=== PATIENT | male | born 1955 | race Asian ===

== ENCOUNTER 2020-01-12 12:12 | Inpatient (IN) | payer MEDICAID ==
[~2020-01-12] VITALS: Ht 170.2 cm; Wt 42.0 kg
[2020-01-12 12:15] VITALS: BP 133/107
--- NOTE | 2020-01-12 12:15 | NUR ---
ED Nurse Note: Patient BIBA. Per EMS, they received a phone call advising that patient was wandering around an apartment complex. Patient currently awake in hospital bed, makes eye contact, nods when asked questions, but does respond verbally. No obvious s/s of fall or trauma. VSS.
--- NOTE | 2020-01-12 12:35 | NUR ---
ED Nurse Note: Blood collected and sent to lab.
--- NOTE | 2020-01-12 12:36 | NUR ---
ED Nurse Note: Patient taken to CT.
[2020-01-12 12:46] LABS: BASOPHILS % (AUTO) 0.4 % (0.0-2.0); EOSINOPHILS % (AUTO) 0.1 % (0.0-3.0); HEMATOCRIT 42.6 % (42.0-52.0); HEMOGLOBIN 13.9 G/DL (14.2-18.0); LYMPHOCYTES % (AUTO) 15.2 % (20.0-45.0); MEAN CORPUSCULAR VOLUME 93 FL (80-99); MONOCYTES % (AUTO) 4.6 % (1.0-10.0); NEUTROPHILS % (AUTO) 79.7 % (45.0-75.0); PLATELET COUNT 246 K/UL (150-450); RED BLOOD COUNT 4.59 M/UL (4.70-6.10); RED CELL DISTRIBUTION WIDTH 14.5 % (11.6-14.8); WHITE BLOOD COUNT 7.6 K/UL (4.8-10.8)
--- NOTE | 2020-01-12 12:47 | Emergency Room Report ---
History of Present Illness General Chief Complaint: Altered Mental Status Source: Patient, EMS (Nash Pa MD) Source: Patient, EMS (Siddhartha Castle DO) Present Illness HPI Elderly unidentified male presents for altered mental status. Was wandering outside when bystanders called 911 today. Patient not wearing clothes. Patient unable to answer questions about his name. No signs of distress upon arrival. Unable to provide any additional history. No other aggravating relieving factors. No other associated symptoms (Nash Pa MD) HPI Patient is brought in by paramedics for reports of altered mental status Please refer to the initial note for the history and presentation In short the patient was found wandering outside of an apartment complex Patient is not able to provide any input we did have Sinhala Speakers speaking with them and he was able to give a last name However not able to provide any further information cannot provide history of his age or where he lives Last well-known is unknown And history of present illness is significantly limited (Siddhartha Castle DO) Allergies: Coded Allergies: UNABLE TO ASSESS (Unverified , 01/12/20) COVID-19 Screening Contact w/high risk pt: No Recent Travel to affected area: No Experienced COVID-19 symptoms?: No (Nash Pa MD) Patient History Past Medical History: none Past Surgical History: none Pertinent Family History: none Social History: Denies: smoking, alcohol use, drug use Immunizations: UTD Reviewed Nursing Documentation: PMH: Agreed; PSxH: Agreed (Nash Pa MD) Limited by: medical condition Past Medical History: see triage record Reviewed Nursing Documentation: PMH: Agreed; PSxH: Agreed (Siddhartha Castle DO) Nursing Documentation-PMH Past Medical History: No History, Except For (Nash Pa MD) Review of Systems All Other Systems: limited (Nash Pa MD) All Other Systems: limited - Other than the ones mentioned in the history of present illness all others are reviewed however they do stay limited due to the patient's mental status (Siddhartha Castle DO) Physical Exam Vital Signs Date Time Temp Pulse Resp B/P (MAP) Pulse Ox O2 Delivery O2 Flow Rate FiO2 01/12/20 12:08 97.2 63 18 133/107 (116) 98 Room Air Sp02 EP Interpretation: reviewed, normal General Appearance: no apparent distress, GCS 15, non-toxic, other - nonverbal Head: normocephalic, atraumatic Eyes: bilateral eye normal inspection, bilateral eye PERRL ENT: hearing grossly normal, normal pharynx, no angioedema, normal voice Neck: full range of motion, supple/symm/no masses Respiratory: chest non-tender, lungs clear, normal breath sounds, speaking full sentences Cardiovascular #1: regular rate, rhythm, no edema Cardiovascular #2: 2+ carotid (R), 2+ carotid (L), 2+ radial (R), 2+ radial (L) , 2+ dorsalis pedis (R), 2+ dorsalis pedis (L) Gastrointestinal: normal bowel sounds, non tender, soft, non-distended, no guarding, no rebound Rectal: deferred Genitourinary: normal inspection, no CVA tenderness Musculoskeletal: back normal, normal range of motion, gait/station normal, non- tender Neurologic: alert, other - nonverbal Psychiatric: other - nonverbal Reflexes: 3+ bicep (R), 3+ bicep (L), 3+ tricep (R), 3+ tricep (L), 3+ knee (R) , 3+ knee (L) Skin: no rash Lymphatic: no adenopathy (Nash Pa MD) 99% on RA Sp02 EP Interpretation: reviewed, normal General Appearance: no apparent distress Head: normocephalic, atraumatic Eyes: bilateral eye PERRL, bilateral eye EOMI ENT: hearing grossly normal, EOM grossly intact Neck: supple Respiratory: lungs clear, no respiratory distress, no retraction Cardiovascular #1: regular rate, rhythm Gastrointestinal: non tender, soft Genitourinary: no CVA tenderness Musculoskeletal: normal inspection Neurologic: responsive - Patient is awake and responsive maintains appropriate , airway. However not able to provide date of , and decreased orientation as noted Psychiatric: normal inspection Skin: no rash Lymphatic: no adenopathy (Siddhartha Castle DO) Procedures Critical Care Time Critical Care Time 70 minutes for multiple re-evaluations critical presentation, concern for acute decompensation and possible not including any procedural time (Siddhartha Castle DO) Medical Decision Making Diagnostic Impression: Primary Impression: Brain metastases Additional Impression: Encephalopathy ER Course Multiple differentials including but not limited to neurological, neurosurgical , infectious process entertained Patient's blood work is baseline Creatinine was elevated CT imaging shows multiple concerning findings with Multiple metastatic lesions in appearance There is consideration for possible hemorrhagic lesions as well Case is discussed with USS Dr oliva He recommended contacting [facility] , however notes that this will not require any acute neurosurgical intervention Case is also discussed with [facility] neuro chinese teacher She also reports that this case will not require ICU or further acute intervention, And recommend admission to our facility with heme-onc consultation Patient is admitted to medical surgical floor he remains hemodynamically stable However has poor prognosis and admitted in serious condition Labs Test 01/12/20 12:35 White Blood Count 7.6 K/UL (4.8-10.8) Red Blood Count 4.59 M/UL (4.70-6.10) Hemoglobin 13.9 G/DL (14.2-18.0) Hematocrit 42.6 % (42.0-52.0) Mean Corpuscular Volume 93 FL (80-99) Mean Corpuscular Hemoglobin 30.3 PG (27.0-31.0) Mean Corpuscular Hemoglobin Concent 32.7 G/DL (32.0-36.0) Red Cell Distribution Width 14.5 % (11.6-14.8) Platelet Count 246 K/UL (150-450) Mean Platelet Volume 5.0 FL (6.5-10.1) Neutrophils (%) (Auto) 79.7 % (45.0-75.0) Lymphocytes (%) (Auto) 15.2 % (20.0-45.0) Monocytes (%) (Auto) 4.6 % (1.0-10.0) Eosinophils (%) (Auto) 0.1 % (0.0-3.0) Basophils (%) (Auto) 0.4 % (0.0-2.0) Prothrombin Time 10.7 SEC (9.30-11.50) Prothromb Time International Ratio 1.0 (0.9-1.1) Activated Partial Thromboplast Time 22 SEC (23-33) Sodium Level 141 MMOL/L (136-145) Potassium Level 4.5 MMOL/L (3.5-5.1) Chloride Level 102 MMOL/L (98-107) Carbon Dioxide Level 21 MMOL/L (21-32) Anion Gap 18 mmol/L (5-15) Blood Urea Nitrogen 36 mg/dL (7-18) Creatinine 1.8 MG/DL (0.55-1.30) Estimat Glomerular Filtration Rate 38.7 mL/min (>60) Glucose Level 179 MG/DL (74-106) Calcium Level 10.0 MG/DL (8.5-10.1) Total Bilirubin 0.9 MG/DL (0.2-1.0) Aspartate Amino Transf (AST/SGOT) 37 U/L (15-37) Alanine Aminotransferase (ALT/SGPT) 22 U/L (12-78) Alkaline Phosphatase 59 U/L (46-116) Troponin I 0.000 ng/mL (0.000-0.056) Total Protein 7.9 G/DL (6.4-8.2) Albumin 3.9 G/DL (3.4-5.0) Globulin 4.0 g/dL Albumin/Globulin Ratio 1.0 (1.0-2.7) Salicylates Level 5.9 ug/mL (2.8-20) Acetaminophen Level < 2 MCG/ML (10-30) Serum Alcohol < 3 mg/dL (Siddhartha Castle DO) EKG Diagnostic Results Rate: normal Rhythm: NSR ST Segments: no acute changes (Siddhartha Castle DO) Rhythm Strip Diag. Results EP Interpretation: yes Rate: 77 Rhythm: NSR, no PVC's, no ectopy (Siddhartha Castle DO) Chest X-Ray Diagnostic Results Chest X-Ray Diagnostic Results : Chest X-Ray Ordered: Yes # of Views/Limited/Complete: 1 View Indication: Chest Pain EP Interpretation: Yes Interpretation: no consolidation, no effusion, other - Leon right mid lung mass lesion Impression: Other - Question right midlung lesion Electronically Signed by: Siddhartha Castle DO (Siddhartha Castle DO) CT/MRI/US Diagnostic Results CT/MRI/US Diagnostic Results : Impression CT head Impression: Innumerable small hyperattenuating lesions in predominantly cortical/subcortical distribution, all supratentorial. Uncertain if these represent areas of calcification or hemorrhage. If hemorrhage, differential considerations are hemorrhagic metastatic disease or unusual encephalopathy; amyloid angiopathy or hypertensive angiopathy theoretically in the differential but appearance not typical for such. If calcification, primary differential considerations include calcified metastases, infection or metabolic disorder. Overall favor metastatic disease given fairly typical location of most lesions at the nance-white junction. Peripheral lesions may represent meningeal involvement. Recommend contrast MRI for better characterization No significant mass effect Old right occipital infarct Extensive deep white matter low-attenuation, most likely chronic ischemic change Findings discussed by phone with Tori in the emergency room at the time of interpretation (Siddhartha Castle DO) Last Vital Signs Date Time Temp Pulse Resp B/P (MAP) Pulse Ox O2 Delivery O2 Flow Rate FiO2 01/12/20 12:08 97.2 63 18 133/107 (116) 98 Room Air (Nash Pa MD) Status: improved (Siddhartha Castle DO) Disposition: ADMITTED INPATIENT Condition: Serious Referrals: NOT CHOSEN IPA/,REFERRING (PCP) Nash Pa MD Jan 12, 2020 12:47 Siddhartha Castle DO Jan 12, 2020 21:11
--- NOTE | 2020-01-12 12:48 | NUR ---
ED Nurse Note: Patient returned from CT.
[2020-01-12 13:01] LABS: ANION GAP 18 mmol/L (5-15); BLOOD UREA NITROGEN 36 mg/dL (7-18); CARBON DIOXIDE 21 MMOL/L (21-32); CHLORIDE 102 MMOL/L (98-107); CREATININE 1.8 MG/DL (0.55-1.30); POTASSIUM 4.5 MMOL/L (3.5-5.1); SODIUM 141 MMOL/L (136-145)
[2020-01-12 13:04] LABS: ALANINE AMINOTRANSFERASE 22 U/L (12-78); ALBUMIN 3.9 G/DL (3.4-5.0); ALKALINE PHOSPHATASE 59 U/L (46-116); ASPARTATE AMINO TRANSFERASE 37 U/L (15-37); BILIRUBIN,TOTAL 0.9 MG/DL (0.2-1.0)
--- NOTE | 2020-01-12 13:25 | NUR ---
ED Nurse Note: Patient unable to provide urine. Per Dr. Pa ok to hold off on urine collectioin at this time.
[2020-01-12] MEDS ORDERED: levETIRAcetam 1,000mg/NS100ml 100 ML IVPB ONE (14:00)
--- NOTE | 2020-01-12 14:00 | NUR ---
ED Nurse Note: Type and cross collected and sent to lab. Per Dr. Pa, patient transferred to monitored bed. Handoff report given to Scarlett VALENTE.
--- NOTE | 2020-01-12 14:00 | Diagnostic Imaging Report ---
Indications: Altered mental status Technique: Spiral acquisitions obtained through the brain. Angled axial and coronal 5 x 5 mm slices were reconstructed. Total dose length product 1045 mGycm. CTDI vol(s) 53 mGy. Dose reduction achieved using automated exposure control Comparison: None. Findings: There are innumerable areas of cortical and subcortical hyperattenuation. Some of these are rounded , largest measuring 7 mm in diameter, and some are gyriform. These are also seen within the bilateral caudate heads. Similar lesions are seen in the medial basal ganglia bilaterally, although these could represent physiologic calcifications. There is a large area of encephalomalacia involving the right occipital lobe. There is extensive periventricular deep white matter low-attenuation, consistent with chronic microvascular ischemic change. There is age-related enlargement of the ventricles and extra-axial CSF spaces. There is an old infarct in the anterior left basal ganglia. Intact calvarium. The mastoids are clear. There is a left maxillary sinus mucous retention cyst. Impression: Innumerable small hyperattenuating lesions in predominantly cortical/subcortical distribution, all supratentorial. Uncertain if these represent areas of calcification or hemorrhage. If hemorrhage, differential considerations are hemorrhagic metastatic disease or unusual encephalopathy; amyloid angiopathy or hypertensive angiopathy theoretically in the differential but appearance not typical for such. If calcification, primary differential considerations include calcified metastases, infection or metabolic disorder. Overall favor metastatic disease given fairly typical location of most lesions at the nance-white junction. Peripheral lesions may represent meningeal involvement. Recommend contrast MRI for better characterization No significant mass effect Old right occipital infarct Extensive deep white matter low-attenuation, most likely chronic ischemic change Findings discussed by phone with Tori in the emergency room at the time of interpretation The CT scanner at [facility] is accredited by the [employer] and the scans are performed using protocols designed to limit radiation exposure to as low as reasonably achievable to attain images of sufficient resolution adequate for diagnostic evaluation.
--- NOTE | 2020-01-12 14:35 | NUR ---
ED Nurse Note: pt into monitored room tolerates transfer well. pt speaking french with staff. ounable to verbalize his name or where he is living. remains ams. vss, meds infusing as ordered
[2020-01-12 14:41] VITALS: BP 118/80
--- NOTE | 2020-01-12 16:26 | NUR ---
ED Nurse Note: pt without new c/o no seizure activity. pt remains calm and resting with eyes closed in room. pt now to be med surg admission.
--- NOTE | 2020-01-12 16:35 | Diagnostic Imaging Report ---
Indication: Chest pain Technique: One view of the chest Comparison: none Findings: The lungs appear somewhat hyperinflated. There is questionably an oval 2.3 cm nodule projected in the right midlung, superimposed over the anterior right fourth costochondral junction. There is apparent sclerosis of the anterior left third rib, versus a superimposed lung nodule. The lungs and pleural spaces are otherwise clear. The heart size is normal. The aorta is tortuous Impression: Questionable right midlung 2.3 cm nodule Sclerotic left third rib versus superimposed nodule. Hyperinflation, likely COPD. No acute process otherwise
--- NOTE | 2020-01-12 16:54 | NUR ---
ED Nurse Note: pt with ivf infusing well. condom cath placed with urine bag to obtain urine sample. no seizure activity noted.
[2020-01-12 18:06] VITALS: BP 115/71
--- NOTE | 2020-01-12 18:14 | NUR ---
ED Nurse Note: attempted to give medicaid specialist report. to call back.
--- NOTE | 2020-01-12 18:21 | NUR ---
ED Nurse Note: admission swabs done as unsure of pt prior status
--- NOTE | 2020-01-12 18:31 | NUR ---
ED Nurse Note:\ per ed charge coordinator. pt moved to 3 east and rn to give bedside report. to [phone] tech and rn
--- NOTE | 2020-01-12 19:00 | NUR ---
NURSE NOTES: Rounds made pt wake a/ox1,no s/s of respiratory distress , bed in low locked position, call light with in reach will continue to monitor
--- NOTE | 2020-01-12 19:30 | NUR ---
NURSE NOTES: admission orders received , verified and carried
[2020-01-12] MEDS ORDERED: Gadavist 7.5mMol/7.5ml vial IV PRN (20:00)
[2020-01-12] MEDS ORDERED: XARELTO20 MG ORAL (21:49)
[2020-01-12] MEDS ORDERED: MORPHINE 22 MG/1 ML IV (21:51)
[2020-01-12] MEDS: Morphine Sulfate 2mg/ml Inj(IV/IM USE ONLY) IVP PRN (23:04)
[2020-01-13] VITALS: BP 129/83
[2020-01-13] MEDS: LORazepam 1mg tab ORAL PRN (00:02)
[2020-01-13 04:00] VITALS: BP 118/77
[2020-01-13] MEDS: Morphine Sulfate 2mg/ml Inj(IV/IM USE ONLY) IVP PRN ×2 (04:00→08:56)
[2020-01-13 05:43] LABS: BASOPHILS % (AUTO) 0.3 % (0.0-2.0); EOSINOPHILS % (AUTO) 0.2 % (0.0-3.0); HEMATOCRIT 35.2 % (42.0-52.0); HEMOGLOBIN 11.9 G/DL (14.2-18.0); LYMPHOCYTES % (AUTO) 21.6 % (20.0-45.0); MEAN CORPUSCULAR VOLUME 91 FL (80-99); MONOCYTES % (AUTO) 6.8 % (1.0-10.0); NEUTROPHILS % (AUTO) 71.1 % (45.0-75.0); PLATELET COUNT 216 K/UL (150-450); RED BLOOD COUNT 3.85 M/UL (4.70-6.10); RED CELL DISTRIBUTION WIDTH 14.3 % (11.6-14.8); WHITE BLOOD COUNT 6.5 K/UL (4.8-10.8)
[2020-01-13 06:02] LABS: ALANINE AMINOTRANSFERASE 27 U/L (12-78); ALBUMIN 3.1 G/DL (3.4-5.0); ALBUMIN/GLOBULIN RATIO 0.9 (1.0-2.7); ALKALINE PHOSPHATASE 50 U/L (46-116); ANION GAP 12 mmol/L (5-15); ASPARTATE AMINO TRANSFERASE 32 U/L (15-37); BILIRUBIN,TOTAL 0.7 MG/DL (0.2-1.0); BLOOD UREA NITROGEN 26 mg/dL (7-18); CARBON DIOXIDE 24 MMOL/L (21-32); CHLORIDE 111 MMOL/L (98-107); CREATININE 1.1 MG/DL (0.55-1.30); POTASSIUM 3.9 MMOL/L (3.5-5.1); SODIUM 147 MMOL/L (136-145)
--- NOTE | 2020-01-13 06:20 | Consultation ---
History of Present Illness General Chief Complaint: Altered Mental Status Present Illness Allergies: Coded Allergies: UNABLE TO ASSESS (Unverified , 01/12/20) Medication History Scheduled Morphine Sulfate* (Morphine Sulfate*), 2 MG IV Q3HR, (Reported) Miscellaneous Medications Rivaroxaban (Xarelto), 20 MG ORAL, (Reported) Patient History Healthcare decision maker Resuscitation status Advanced Directive on File Physical Exam Last 24 Hour Vital Signs Date Time Temp Pulse Resp B/P (MAP) Pulse Ox O2 Delivery O2 Flow Rate FiO2 01/13/20 00:00 97.8 85 18 129/83 (98) 95 01/12/20 21:55 Room Air 01/12/20 18:06 89 16 115/71 100 Room Air 01/12/20 14:41 70 16 118/80 98 Room Air 01/12/20 12:15 97.2 63 18 133/107 98 Room Air 01/12/20 12:15 63 18 Room Air 01/12/20 12:08 97.2 63 18 133/107 (116) 98 Room Air Intake and Output 01/12/20 01/13/20 19:00 07:00 Intake Total 3200 ml Balance 3200 ml Intake IV Total 3200 ml Laboratory Tests Test 01/12/20 12:35 01/13/20 05:05 White Blood Count 7.6 K/UL (4.8-10.8) 6.5 K/UL (4.8-10.8) Red Blood Count 4.59 M/UL (4.70-6.10) L 3.85 M/UL (4.70-6.10) L Hemoglobin 13.9 G/DL (14.2-18.0) L 11.9 G/DL (14.2-18.0) L Hematocrit 42.6 % (42.0-52.0) 35.2 % (42.0-52.0) L Mean Corpuscular Volume 93 FL (80-99) 91 FL (80-99) Mean Corpuscular Hemoglobin 30.3 PG (27.0-31.0) 30.8 PG (27.0-31.0) Mean Corpuscular Hemoglobin Concent 32.7 G/DL (32.0-36.0) 33.7 G/DL (32.0-36.0) Red Cell Distribution Width 14.5 % (11.6-14.8) 14.3 % (11.6-14.8) Platelet Count 246 K/UL (150-450) 216 K/UL (150-450) Mean Platelet Volume 5.0 FL (6.5-10.1) L 4.9 FL (6.5-10.1) L Neutrophils (%) (Auto) 79.7 % (45.0-75.0) H 71.1 % (45.0-75.0) Lymphocytes (%) (Auto) 15.2 % (20.0-45.0) L 21.6 % (20.0-45.0) Monocytes (%) (Auto) 4.6 % (1.0-10.0) 6.8 % (1.0-10.0) Eosinophils (%) (Auto) 0.1 % (0.0-3.0) 0.2 % (0.0-3.0) Basophils (%) (Auto) 0.4 % (0.0-2.0) 0.3 % (0.0-2.0) Prothrombin Time 10.7 SEC (9.30-11.50) Prothromb Time International Ratio 1.0 (0.9-1.1) Activated Partial Thromboplast Time 22 SEC (23-33) L Sodium Level 141 MMOL/L (136-145) Pending Potassium Level 4.5 MMOL/L (3.5-5.1) Pending Chloride Level 102 MMOL/L (98-107) Pending Carbon Dioxide Level 21 MMOL/L (21-32) Pending Anion Gap 18 mmol/L (5-15) H Blood Urea Nitrogen 36 mg/dL (7-18) H Pending Creatinine 1.8 MG/DL (0.55-1.30) H Pending Estimat Glomerular Filtration Rate 38.7 mL/min (>60) Pending Glucose Level 179 MG/DL (74-106) H Pending Calcium Level 10.0 MG/DL (8.5-10.1) Pending Total Bilirubin 0.9 MG/DL (0.2-1.0) Pending Aspartate Amino Transf (AST/SGOT) 37 U/L (15-37) Pending Alanine Aminotransferase (ALT/SGPT) 22 U/L (12-78) Pending Alkaline Phosphatase 59 U/L (46-116) Pending Troponin I 0.000 ng/mL (0.000-0.056) Total Protein 7.9 G/DL (6.4-8.2) Pending Albumin 3.9 G/DL (3.4-5.0) Pending Globulin 4.0 g/dL Pending Albumin/Globulin Ratio 1.0 (1.0-2.7) Salicylates Level 5.9 ug/mL (2.8-20) Acetaminophen Level < 2 MCG/ML (10-30) L Serum Alcohol < 3 mg/dL Height (Feet): 5 Height (Inches): 7.00 Weight (Pounds): 100 Medications Current Medications Medications (Trade) Dose Ordered Sig/Aletha Route PRN Reason Start Time Stop Time Status Last Admin Dose Admin Gadobutrol (Gadavist) 7.5 mmol NOW PRN IV Radiology Procedure 01/12/20 20:00 01/16/20 20:00 Lorazepam (Ativan) 1 mg Q4H PRN ORAL For Anxiety 01/12/20 20:00 01/19/20 19:59 01/13/20 00:02 Morphine Sulfate (Morphine Sulfate) 2 mg Q3H PRN IVP For Pain 01/12/20 22:00 01/19/20 21:59 01/13/20 04:00 Rivaroxaban (Xarelto) 20 mg DAILY ORAL 01/13/20 09:00 04/12/20 08:59 UNV Sodium Chloride 1,000 ml @ 100 mls/hr Q10H IV 01/12/20 20:15 02/11/20 20:14 01/12/20 20:15 Assessment/Plan Assessment/Plan: Oncology Consultation RECamacho MD: Sam Dugan RFC: Brains mets DOS 01/13/2020 HPI 64y old male, elderly unidentified male presents for altered mental status. Was wandering outside when bystanders called 911 today. Patient not wearing clothes. Patient unable to answer questions about his name. No signs of distress upon arrival. Unable to provide any additional history. No other aggravating relieving factors. No other associated symptoms I reviewed brain imaging, shows, multiple brain mets, no other hx noted, no prior hx of imaging. Patient is brought in by paramedics for reports of altered mental status. Please refer to the initial note for the history and presentation. In short the patient was found wandering outside of an apartment complex Patient is not able to provide any input we did have Belarusian Speakers speaking with them and he was able to give a last name However not able to provide any further information cannot provide history of his age or where he lives And history of present illness is significantly limited I used a Belarusian speaking Rn to dw patient care Allergies: UNABLE TO ASSESS (Unverified , 01/12/20) COVID-19 Screening Contact w/high risk pt: No Recent Travel to affected area: No Experienced COVID-19 symptoms?: No Patient History Past Medical History: none Past Surgical History: none Pertinent Family History: none Social History: Denies: smoking, alcohol use, drug use Immunizations: UTD Reviewed Nursing Documentation: PMH: Agreed; PSxH: Agreed Limited by: medical condition Past Medical History: see triage record Reviewed Nursing Documentation: PMH: Agreed; PSxH: Agreed Nursing Documentation-PMH Past Medical History: No History, Except For Review of Systems All Other Systems: limited- Other than the ones mentioned in the history of present illness all others are reviewed however they do stay limited due to the patient's mental status Vital Signs Vitals: noted General no apparent distress, GCS 15, nonverbal Heent: nc, at Resp: chest non-tender, lungs clear Cardiovascular: rrr, no mgr Gastrointestinal: normal bowel sounds, non tender Rectal: deferred Genitourinary: normal inspection, no CVA tenderness Musc: back normal, normal range of motion Neurologic: alert, other - nonverbal Psychiatric: other - nonverbal Labs: noted Imaging: noted Assessment and recs # Lung cancer with brain mets noted on imaging, multiple differentials including but not limited to neurological, neurosurgical, infectious process entertained, prior hospice --> imaging noted on imaging --> have ordered for tumor markers --> case dw son, has been on hospice before,consider back on hospice ==> per Dr. oliva, likely won't need neurosurgery [facility] transfer --> BACK on hospice recommendation # Anemia due to chronic disease --> no bleeding reported --> smear is noted --> no hemolysis # Encephalopathy --> likely related to brain mets --> lytes and ammonia # Dvt ppx scds DW Rn and appreciate consultation Kirby Mojica MD Jan 13, 2020 06:20
--- NOTE | 2020-01-13 07:30 | NUR ---
NURSE NOTES: Patient is in bed asleep. Stable. Breathing is even and unlabored. No visible signs of distress noted. Patient is in bed in locked and lowest position with call light within reach. All safety measures provided. Will continue to monitor.
[2020-01-13 08:00] VITALS: BP 131/90
--- NOTE | 2020-01-13 08:16 | NUR ---
HAND-OFF: Report given to Rosie VALENTE.
--- NOTE | 2020-01-13 08:17 | NUR ---
HAND-OFF: Report given to Sun VALENTE.
[2020-01-13] MEDS: Xarelto 10mg tab ORAL SCH ×2 (08:55→09:00)
--- NOTE | 2020-01-13 09:01 | NUR ---
NURSE NOTES: RN attempted to give patient morning PO medication. Patient spit out medication and refused to take pills.
--- NOTE | 2020-01-13 09:58 | NUR ---
CASE MANAGEMENT: INITIAL REVIEW 64YR OLD MALE BIBA FROM STREET CC: ALTERED MENTAL STATUS; WONDERING STREET NAKED SI:BRAIN METASTATIC DISEASE . ENCEPHALOPATHY 97.2 63 18 133/107 98% ON RA BUN/CREAT 36/1.8 BG 179 PTT 22 ACETAMINOPHEN <2 IS:IVF NS BOLUS X1 IV KEPPRA X1 CHEST X-[id number]-Tetopcnxdlks right midlung 2.3 cm nodule; Sclerotic left third rib versus superimposed nodule. Hyperinflation, likely COPD. CT HEAD- Innumerable small hyperattenuating lesions in predominantly cortical/subcortical distribution, all supratentorial. Uncertain if these represent areas of calcification or hemorrhage. \: [facility] DCP: HOME WHEN STABLE VS SNF PLAN: COVID-19 R/O CASE MANAGEMENT: REVIEW 01/13/20 SI:BRAIN METASTATIC DISEASE . ENCEPHALOPATHY 97.6 78 18 131/90 98% ON RA NA+ 147 BUN 26 CA+ 8.0 ALBUMIN 3.1 IS:IV NS @100ML/HR ATIVAN PO Q4HR/PRN \: [facility]E MED [facility]G UNIT DCP: HOME WHEN STABLE; INSURANCE VERIFICATION IN PROCESS PLAN: COVID-19 R/O
--- NOTE | 2020-01-13 10:43 | NUR ---
SALES FLOOR TEAM LEADER NOTE SW met w/ pt and attempted to assess. Pt is awake but was unable to answer questions and have meaningful conversation. Pt presents as A&O 0x and underweight. GALLO contacted pt's son, Diogenes Son [phone]. Per Diogenes, pt was dx w/ Brain Disease and has been significantly deteriorated a month ago. Pt resides w/ Diogenes at [address] [address]. PT does not receive any income.Pt has only one son. Per Diogenes, pt needs assistance w/ ADLs. Pt does not have a caregiver and may not qualify for [facility] service d/t restricted insurance. The son provided the cane for pt but pt declined to use the cane. This pt may not be safe to return home. Pt receives hospice care: [facility] [phone]. GALLO left a message for call back. Addendum: 01/13/20 at 1127 by CATHLEEN HOLDER GALLO spoke w/ Sil, admission coordinator at [facility] [phone]. PT has been receiving hospice service ins 01/07/2020. Per Sil, the son initially declined pt to be placed at half-way and Sil provided the list of caregiving services. GALLO informed Sil that pt's son requested half-way placement. [facility] can continue to provide service once pt's DC placement is settled.
--- NOTE | 2020-01-13 11:37 | History & Physical ---
History and Physical History & Physicial 64y old male, elderly unidentified male presents for altered mental status. Was wandering outside when bystanders called 911 today. Patient not wearing clothes. 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 and has been in significant pain and on hospice at home and would like him to return I reviewed brain imaging, shows, multiple brain mets, which was confirmed by son currently with significant pain PMH small cell ca with mets DVT MEDS and ALLERGIES noted PHYSICAL frail male NAD CTA [id number] no CCE Labs Test 01/12/20 12:35 01/13/20 05:05 White Blood Count 7.6 K/UL (4.8-10.8) 6.5 K/UL (4.8-10.8) Red Blood Count 4.59 M/UL (4.70-6.10) 3.85 M/UL (4.70-6.10) Hemoglobin 13.9 G/DL (14.2-18.0) 11.9 G/DL (14.2-18.0) Hematocrit 42.6 % (42.0-52.0) 35.2 % (42.0-52.0) Mean Corpuscular Volume 93 FL (80-99) 91 FL (80-99) Mean Corpuscular Hemoglobin 30.3 PG (27.0-31.0) 30.8 PG (27.0-31.0) Mean Corpuscular Hemoglobin Concent 32.7 G/DL (32.0-36.0) 33.7 G/DL (32.0-36.0) Red Cell Distribution Width 14.5 % (11.6-14.8) 14.3 % (11.6-14.8) Platelet Count 246 K/UL (150-450) 216 K/UL (150-450) Mean Platelet Volume 5.0 FL (6.5-10.1) 4.9 FL (6.5-10.1) Neutrophils (%) (Auto) 79.7 % (45.0-75.0) 71.1 % (45.0-75.0) Lymphocytes (%) (Auto) 15.2 % (20.0-45.0) 21.6 % (20.0-45.0) Monocytes (%) (Auto) 4.6 % (1.0-10.0) 6.8 % (1.0-10.0) Eosinophils (%) (Auto) 0.1 % (0.0-3.0) 0.2 % (0.0-3.0) Basophils (%) (Auto) 0.4 % (0.0-2.0) 0.3 % (0.0-2.0) Prothrombin Time 10.7 SEC (9.30-11.50) Prothromb Time International Ratio 1.0 (0.9-1.1) Activated Partial Thromboplast Time 22 SEC (23-33) Sodium Level 141 MMOL/L (136-145) 147 MMOL/L (136-145) Potassium Level 4.5 MMOL/L (3.5-5.1) 3.9 MMOL/L (3.5-5.1) Chloride Level 102 MMOL/L (98-107) 111 MMOL/L (98-107) Carbon Dioxide Level 21 MMOL/L (21-32) 24 MMOL/L (21-32) Anion Gap 18 mmol/L (5-15) 12 mmol/L (5-15) Blood Urea Nitrogen 36 mg/dL (7-18) 26 mg/dL (7-18) Creatinine 1.8 MG/DL (0.55-1.30) 1.1 MG/DL (0.55-1.30) Estimat Glomerular Filtration Rate 38.7 mL/min (>60) > 60 mL/min (>60) Glucose Level 179 MG/DL (74-106) 93 MG/DL (74-106) Calcium Level 10.0 MG/DL (8.5-10.1) 8.0 MG/DL (8.5-10.1) Total Bilirubin 0.9 MG/DL (0.2-1.0) 0.7 MG/DL (0.2-1.0) Aspartate Amino Transf (AST/SGOT) 37 U/L (15-37) 32 U/L (15-37) Alanine Aminotransferase (ALT/SGPT) 22 U/L (12-78) 27 U/L (12-78) Alkaline Phosphatase 59 U/L (46-116) 50 U/L (46-116) Troponin I 0.000 ng/mL (0.000-0.056) Total Protein 7.9 G/DL (6.4-8.2) 6.4 G/DL (6.4-8.2) Albumin 3.9 G/DL (3.4-5.0) 3.1 G/DL (3.4-5.0) Globulin 4.0 g/dL 3.3 g/dL Albumin/Globulin Ratio 1.0 (1.0-2.7) 0.9 (1.0-2.7) Salicylates Level 5.9 ug/mL (2.8-20) Acetaminophen Level < 2 MCG/ML (10-30) Serum Alcohol < 3 mg/dL Reticulocyte Count 0.7 % (0.5-2.0) Prostate Specific Antigen 1.17 ng/mL (0.13-4.0) IMPRESSION Small cell Ca widely metastatic chronic encephalopathy anxiety severe pain cachexia PLAN oncology noted confirms that patient should be sent home with hospice son would like to continue and confirms DNR impression, plan, and exam edited and reviewed in detail care discussed with Cristhian Stout MD Jan 13, 2020 11:37
[2020-01-13 12:00] VITALS: BP 143/82
[2020-01-13] MEDS: Morphine Sulfate 4mg/ml Inj (IV USE ONLY) IVP PRN ×3 (12:46→21:37)
--- NOTE | 2020-01-13 12:56 | NUR ---
[employer] Bedside Swallow Evaluation (full report in Care Activity Section) Referred for Bedside Swallow Evaluation by Dr. Dugan. Dysphagia risk factors for this frail 64-year-old Indonesian-Speaking male: ACUTE ISSUES: Small cell Brain Cancer with metastasis RELEVANT MEDICATIONS: Per RN, Pt given Morphine prior to evaluation. RESPIRATORY STATUS: Pt is on room air, no SOB or increased WOB. RN REPORTS: When attempting to give Pt medications, Pt spit medications back at RN. Pt's breakfast meal tray of chewable solids and thin liquids is still sitting at bedside when [employer] arrived in room. Pt appearing frail, movements are slow, able to respond to simple, yes/no questions. Pt moans occasionally when attempting to reposition. Pt is alert for PO trials and has some dentition, is on room air. INITIAL IMPRESSIONS: High risk for OP Dysphagia, POOR PO intake, AND REDUCED SWALLOW EFFICACY due to reduced alertness & pain levels (given Morphine), h/o poor PO intake (per son), overall weakness, result in concern for Pt's ability to maintain adequate nutrition/hydration via PO intake. Pt IS AT A HIGH SILENT ASPIRATION RISK DUE TO H/o BRAIN CA & H/o CVA. PO TRIALS: -Given Thin Liquids via straw/cup/spoon w/ no overt s/s of aspiration, however, Pt observed w/ multiple swallows. -Given Puree Solids w/ no overt s/s of aspiration, laryngeal elevation is fair and delayed per palpations. No oral residuals remaining in oral cavity. Due to Pt previously being on hospice, has h/o poor PO intake (per Son Pt w/ min intake of Ensure or any solid foods previously and would appreciate recommendations of foods Pt is agreeable to eat), and concern for Pt's ability to sustain adequate nutrition/hydration via PO intake, MD to consider supplemental alternative nutrition/hydration. Due to Pt being on Hospice, [employer] plans to see Pt while still in house to optimize Pt's safety and ability to consume least restrictive PO diet for adequate nutrition and hydration while Pt is still in house. RECOMMENDATIONS: 1. Continue Soft Chewable Solids with Thin Liquids, Please assist Pt w/ tray set up. 2. Consider 24-hour calorie count 3. [employer] plans to continue to follow Pt while in house for dysphagia management, Pt and caregiver education and training, to optimize quality of life and safety w/ PO intake. 4. Please assist Pt w/ strict oral care w/ suction. Educted RN on results and recommendations, and [employer] spoke w/ Pt's son regarding recommendations.
--- NOTE | 2020-01-13 13:11 | NUR ---
RD ASSESSMENT & RECOMMENDATIONS SEE CARE ACTIVITY FOR COMPLETE ASSESSMENT DAILY ESTIMATED NEEDS: Needs based on Severe underweight 42.2 35-40 kcals/kg 3311-4125 total kcals 1-2 g protein/kg 42-84 g total protein 25-35ml/kcal mL/kg 5949-7696 total fluid mLs NUTRITION DIAGNOSIS: Increase Kcal needs r/t underweight status as evidenced by pt w/mets brain dz, BMI underweight per guidelines, pt is 63% of ideal body weight w/ severe generalized wasting. CURRENT DIET:soft PO DIET RECOMMENDATIONS: Liberalized regular diet-> texture per ANIMAL NUTRITION TEACHER ADDITIONAL RECOMMENDATIONS: 1) Add Ensure TID w/ meals + snacks as tolerated in b/w meals 2) Weekly weights 3) IVF for hydration
--- NOTE | 2020-01-13 13:29 | NUR ---
P.T Note: Pt unable to tolerated P.T evaluation. Pt is lethargic and in severe pain despite receiving pain meds prior to P.T attempt. Will reattempt as patient is able.
[2020-01-13 16:00] VITALS: BP 165/98
--- NOTE | 2020-01-13 19:36 | NUR ---
HAND-OFF: Report given to Byrono RN. Patient is stable.
--- NOTE | 2020-01-13 19:40 | NUR ---
NURSE NOTES: Receive a report from SIDRA Velez. Round is done. Pt is awake but confused. Noted general weakness and stiffness. Pt is not able to follow directions much. Pulled out condom catheter by himself. No acute distress noted. No respiratory distress noted. On bed alarm. Bed is locked and lowest. On side rail pads both sides. Kept elevated head. Will continue to monitor.
[2020-01-13 20:00] VITALS: BP 145/99
--- NOTE | 2020-01-13 22:00 | NUR ---
NURSE NOTES: Pt could not express his own needs well but after getting pain medication, pt seems less agitated. Could not vocalize his pain location. Noted bladder incontinent. Done change sheets and gown. Kept dry and clean. No skin issues noted except old scabs around the body and legs. Will continue to monitor.
[2020-01-14] VITALS: BP 155/75
--- NOTE | 2020-01-14 | NUR ---
NURSE NOTES: Noted dry mouth and tried to give thickened water/applesauce but refuses to eat. Kept head elevated. IV hydration with NS 100ml/hr. Will continue to monitor.
[2020-01-14] MEDS: Morphine Sulfate 4mg/ml Inj (IV USE ONLY) IVP PRN ×3 (01:42→10:39)
[2020-01-14 04:00] VITALS: BP 151/94
--- NOTE | 2020-01-14 06:00 | NUR ---
NURSE NOTES: No acute distress noted. Pt took out gown by himself and did not want to put it on. After pain medication, pt looks less agitated but still could not express own needs. Will continue to monitor.
[2020-01-14 07:08] LABS: ANION GAP 11 mmol/L (5-15); BLOOD UREA NITROGEN 18 mg/dL (7-18); CALCIUM 7.8 MG/DL (8.5-10.1); CARBON DIOXIDE 24 MMOL/L (21-32); CHLORIDE 114 MMOL/L (98-107); CREATININE 0.8 MG/DL (0.55-1.30); POTASSIUM 3.6 MMOL/L (3.5-5.1); SODIUM 149 MMOL/L (136-145)
[2020-01-14 07:14] LABS: BASOPHILS % (AUTO) 0.2 % (0.0-2.0); EOSINOPHILS % (AUTO) 0.2 % (0.0-3.0); HEMATOCRIT 37.2 % (42.0-52.0); HEMOGLOBIN 12.3 G/DL (14.2-18.0); LYMPHOCYTES % (AUTO) 22.3 % (20.0-45.0); MEAN CORPUSCULAR VOLUME 92 FL (80-99); MONOCYTES % (AUTO) 5.2 % (1.0-10.0); NEUTROPHILS % (AUTO) 72.1 % (45.0-75.0); PLATELET COUNT 236 K/UL (150-450); RED BLOOD COUNT 4.06 M/UL (4.70-6.10); RED CELL DISTRIBUTION WIDTH 14.6 % (11.6-14.8)
--- NOTE | 2020-01-14 07:30 | NUR ---
HAND-OFF: Report given to SIDRA Velez. Round is done.
--- NOTE | 2020-01-14 07:41 | NUR ---
NURSE NOTES: Patient is in bed asleep. Stable. Facial grimacing noted. Breathing is even and unlabored. No distress noted. Patient is in bed in locked and lowest position with call light within reach and bed alarm on. All safety measures provided. Will continue to monitor.
[2020-01-14 08:00] VITALS: BP 149/100
[2020-01-14] MEDS ORDERED: HYDROmorphone 1mg/ml Carpuject IVP PRN (08:00)
--- NOTE | 2020-01-14 08:36 | General Progress Note ---
Assessment/Plan Assessment/Plan: IMPRESSION Small cell Ca widely metastatic chronic encephalopathy anxiety severe pain cachexia PLAN oncology noted confirms that patient should be sent home with hospice son would like to continue and confirms DNR await case management to assist impression, plan, and exam edited and reviewed in detail care discussed with RN Subjective Allergies: Coded Allergies: UNABLE TO ASSESS (Unverified , 01/12/20) Subjective awaiting dc Objective Last 24 Hour Vital Signs Date Time Temp Pulse Resp B/P (MAP) Pulse Ox O2 Delivery O2 Flow Rate FiO2 01/14/20 08:00 98.1 79 18 149/100 (116) 98 01/14/20 04:00 97.3 79 18 151/94 (113) 99 01/14/20 00:00 97.1 80 18 155/75 (101) 99 01/13/20 22:07 97.8 01/13/20 21:00 Room Air 01/13/20 20:00 96.3 81 18 145/99 (114) 96 01/13/20 16:00 97.8 92 18 165/98 (120) 97 01/13/20 12:00 97.3 75 18 143/82 (102) 98 01/13/20 09:00 Room Air Intake and Output 01/13/20 01/14/20 19:00 07:00 Intake Total 1200 ml Output Total 200 ml Balance 1000 ml Intake IV Total 1200 ml Output Urine Total 200 ml # Voids 1 Laboratory Tests 01/14/20 04:45: White Blood Count 7.0, Red Blood Count 4.06L, Hemoglobin 12.3L, Hematocrit 37.2L , Mean Corpuscular Volume 92, Mean Corpuscular Hemoglobin 30.3, Mean Corpuscular Hemoglobin Concent 33.1, Red Cell Distribution Width 14.6, Platelet Count 236, Mean Platelet Volume 5.4L, Neutrophils (%) (Auto) 72.1, Lymphocytes ( %) (Auto) 22.3, Monocytes (%) (Auto) 5.2, Eosinophils (%) (Auto) 0.2, Basophils (%) (Auto) 0.2, Sodium Level 149H, Potassium Level 3.6, Chloride Level 114H, Carbon Dioxide Level 24, Anion Gap 11, Blood Urea Nitrogen 18, Creatinine 0.8, Estimat Glomerular Filtration Rate > 60, Glucose Level 80, Calcium Level 7.8L Height (Feet): 5 Height (Inches): 7.00 Weight (Pounds): 92 Objective WDWN NAD clear breath sounds bilaterally without rhonchi or wheeze [id number] without MRG NABS nontender no HSM no CCE nonfocal cachectic Cristhian Dugan MD Jan 14, 2020 08:36
[2020-01-14] MEDS: HYDROmorphone 1mg/ml Carpuject IVP PRN ×4 (08:48→23:38)
[2020-01-14] MEDS: Xarelto 10mg tab ORAL SCH (08:48)
--- NOTE | 2020-01-14 09:41 | NUR ---
CASE MANAGEMENT:JUANA PATTON ATTEMPTED TO CONTACT SON OF PATIENT REGARDING DISCHARGE T: [phone] Addendum: 01/14/20 at 1658 by RADHA GREGOYR LVN SPOKE TO SON UNABLE TO CARE FOR FATHER PATIENT HAS ELOPED FROM SON CARE MORE THAN ONCE IN THE PROCESS OF MEDICAL APPLICATION WITH ZHAO STEWART F/U IN AM
[2020-01-14 12:00] VITALS: BP 149/95
--- NOTE | 2020-01-14 12:24 | Hematology/Onc Progress Note ---
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 Lloyd, likely won't need neurosurgery MAC transfer --> BACK on hospice recommendation --> recommend hospice # Anemia due to chronic disease --> no bleeding reported --> smear is noted --> no hemolysis # Encephalopathy --> likely related to brain mets --> lytes and ammonia # Poor prognosis -- hospice recommended # Dvt ppx scds DW Rn and appreciate consultation Subjective Constitutional: Denies: no symptoms, chills, fever, malaise, weakness, other HEENT: Denies: no symptoms, eye pain, blurred vision, tearing, double vision, ear pain, ear discharge, nose pain, nose congestion, throat pain, throat swelling, mouth pain, mouth swelling, other Cardiovascular: Denies: no symptoms, chest pain, edema, irregular heart rate, lightheadedness, palpitations, syncope, other Gastrointestinal/Abdominal: Denies: no symptoms, abdomen distended, abdominal pain, black stools, tarry stools, blood in stool, constipated, diarrhea, difficulty swallowing, nausea, poor appetite, poor fluid intake, rectal bleeding , vomiting, other Endocrine: Denies: no symptoms, excessive sweating, flushing, intolerance to cold, intolerance to heat, increased hunger, increased thirst, increased urine, unexplained weight gain, unexplained weight loss, other Allergies: Coded Allergies: UNABLE TO ASSESS (Unverified , 01/12/20) Subjective 01/13 patient remains confused, no bleeding, meds noted, no night sweats, dnr, hospice care Objective Objective Current Medications Medications (Trade) Dose Ordered Sig/Aletha Route PRN Reason Start Time Stop Time Status Last Admin Dose Admin Gadobutrol (Gadavist) 7.5 mmol NOW PRN IV Radiology Procedure 01/12/20 20:00 01/16/20 20:00 Hydromorphone HCl (Dilaudid) 1 mg Q3H PRN IVP Severe Breakthru Pain (>7) 01/14/20 08:45 01/21/20 08:44 01/14/20 08:48 Lorazepam (Ativan) 1 mg Q4H PRN ORAL For Anxiety 01/12/20 20:00 01/19/20 19:59 01/13/20 00:02 Morphine Sulfate (Morphine Sulfate) 4 mg Q4H PRN IVP For Pain 01/13/20 09:30 01/20/20 09:29 01/14/20 10:39 Rivaroxaban (Xarelto) 20 mg DAILY ORAL 01/13/20 09:00 04/12/20 08:59 Sodium Chloride 1,000 ml @ 100 mls/hr Q10H IV 01/14/20 08:45 02/13/20 08:44 01/14/20 08:48 Last 24 Hour Vital Signs Date Time Temp Pulse Resp B/P (MAP) Pulse Ox O2 Delivery O2 Flow Rate FiO2 01/14/20 09:00 Room Air 01/14/20 08:00 98.1 79 18 149/100 (116) 98 01/14/20 04:00 97.3 79 18 151/94 (113) 99 01/14/20 00:00 97.1 80 18 155/75 (101) 99 01/13/20 22:07 97.8 01/13/20 21:00 Room Air 01/13/20 20:00 96.3 81 18 145/99 (114) 96 01/13/20 16:00 97.8 92 18 165/98 (120) 97 01/13/20 12:00 97.3 75 18 143/82 (102) 98 01/13/20 09:00 Room Air 01/13/20 08:00 97.6 78 18 131/90 (104) 98 01/13/20 04:00 98.0 76 18 118/77 (91) 97 01/13/20 00:00 97.8 85 18 129/83 (98) 95 01/12/20 21:55 Room Air 01/12/20 18:06 89 16 115/71 100 Room Air 01/12/20 14:41 70 16 118/80 98 Room Air Intake and Output 01/13/20 01/14/20 19:00 07:00 Intake Total 1200 ml Output Total 200 ml Balance 1000 ml Intake IV Total 1200 ml Output Urine Total 200 ml # Voids 1 Labs Test 01/12/20 12:35 01/13/20 05:05 01/14/20 04:45 White Blood Count 7.6 K/UL (4.8-10.8) 6.5 K/UL (4.8-10.8) 7.0 K/UL (4.8-10.8) Red Blood Count 4.59 M/UL (4.70-6.10) 3.85 M/UL (4.70-6.10) 4.06 M/UL (4.70-6.10) Hemoglobin 13.9 G/DL (14.2-18.0) 11.9 G/DL (14.2-18.0) 12.3 G/DL (14.2-18.0) Hematocrit 42.6 % (42.0-52.0) 35.2 % (42.0-52.0) 37.2 % (42.0-52.0) Mean Corpuscular Volume 93 FL (80-99) 91 FL (80-99) 92 FL (80-99) Mean Corpuscular Hemoglobin 30.3 PG (27.0-31.0) 30.8 PG (27.0-31.0) 30.3 PG (27.0-31.0) Mean Corpuscular Hemoglobin Concent 32.7 G/DL (32.0-36.0) 33.7 G/DL (32.0-36.0) 33.1 G/DL (32.0-36.0) Red Cell Distribution Width 14.5 % (11.6-14.8) 14.3 % (11.6-14.8) 14.6 % (11.6-14.8) Platelet Count 246 K/UL (150-450) 216 K/UL (150-450) 236 K/UL (150-450) Mean Platelet Volume 5.0 FL (6.5-10.1) 4.9 FL (6.5-10.1) 5.4 FL (6.5-10.1) Neutrophils (%) (Auto) 79.7 % (45.0-75.0) 71.1 % (45.0-75.0) 72.1 % (45.0-75.0) Lymphocytes (%) (Auto) 15.2 % (20.0-45.0) 21.6 % (20.0-45.0) 22.3 % (20.0-45.0) Monocytes (%) (Auto) 4.6 % (1.0-10.0) 6.8 % (1.0-10.0) 5.2 % (1.0-10.0) Eosinophils (%) (Auto) 0.1 % (0.0-3.0) 0.2 % (0.0-3.0) 0.2 % (0.0-3.0) Basophils (%) (Auto) 0.4 % (0.0-2.0) 0.3 % (0.0-2.0) 0.2 % (0.0-2.0) Prothrombin Time 10.7 SEC (9.30-11.50) Prothromb Time International Ratio 1.0 (0.9-1.1) Activated Partial Thromboplast Time 22 SEC (23-33) Sodium Level 141 MMOL/L (136-145) 147 MMOL/L (136-145) 149 MMOL/L (136-145) Potassium Level 4.5 MMOL/L (3.5-5.1) 3.9 MMOL/L (3.5-5.1) 3.6 MMOL/L (3.5-5.1) Chloride Level 102 MMOL/L (98-107) 111 MMOL/L (98-107) 114 MMOL/L (98-107) Carbon Dioxide Level 21 MMOL/L (21-32) 24 MMOL/L (21-32) 24 MMOL/L (21-32) Anion Gap 18 mmol/L (5-15) 12 mmol/L (5-15) 11 mmol/L (5-15) Blood Urea Nitrogen 36 mg/dL (7-18) 26 mg/dL (7-18) 18 mg/dL (7-18) Creatinine 1.8 MG/DL (0.55-1.30) 1.1 MG/DL (0.55-1.30) 0.8 MG/DL (0.55-1.30) Estimat Glomerular Filtration Rate 38.7 mL/min (>60) > 60 mL/min (>60) > 60 mL/min (>60) Glucose Level 179 MG/DL (74-106) 93 MG/DL (74-106) 80 MG/DL (74-106) Calcium Level 10.0 MG/DL (8.5-10.1) 8.0 MG/DL (8.5-10.1) 7.8 MG/DL (8.5-10.1) Total Bilirubin 0.9 MG/DL (0.2-1.0) 0.7 MG/DL (0.2-1.0) Aspartate Amino Transf (AST/SGOT) 37 U/L (15-37) 32 U/L (15-37) Alanine Aminotransferase (ALT/SGPT) 22 U/L (12-78) 27 U/L (12-78) Alkaline Phosphatase 59 U/L (46-116) 50 U/L (46-116) Troponin I 0.000 ng/mL (0.000-0.056) Total Protein 7.9 G/DL (6.4-8.2) 6.4 G/DL (6.4-8.2) Albumin 3.9 G/DL (3.4-5.0) 3.1 G/DL (3.4-5.0) Globulin 4.0 g/dL 3.3 g/dL Albumin/Globulin Ratio 1.0 (1.0-2.7) 0.9 (1.0-2.7) Salicylates Level 5.9 ug/mL (2.8-20) Acetaminophen Level < 2 MCG/ML (10-30) Serum Alcohol < 3 mg/dL Reticulocyte Count 0.7 % (0.5-2.0) Carcinoembryonic Antigen 201.0 ng/mL (0.0-4.7) CA 15-3 Antigen 13.2 U/mL (0.0-25.0) Prostate Specific Antigen 1.17 ng/mL (0.13-4.0) Height (Feet): 5 Height (Inches): 7.00 Weight (Pounds): 92 Objective Vital Signs Vitals: noted General no apparent distress, GCS 15, nonverbal Heent: nc, at Resp: chest non-tender, lungs clear Cardiovascular: rrr, no mgr Gastrointestinal: normal bowel sounds, non tender Rectal: deferred Genitourinary: normal inspection, no CVA tenderness Musc: back normal, normal range of motion Neurologic: alert, other - nonverbal Psychiatric: other - nonverbal Kirby Mojica MD Jan 14, 2020 12:24
[2020-01-14 16:00] VITALS: BP 127/83
--- NOTE | 2020-01-14 16:50 | NUR ---
CASE MANAGEMENT: REVIEW 01/14/20 SI:BRAIN METASTATIC DISEASE . ENCEPHALOPATHY 98.0 74 18 127/83 98% ON RA NA+149 CL-114 CA+7.8 IS:IV NS @100ML/HR ATIVAN PO Q4HR/PRN IV MORPHINE SULFATE Q4HR/PRN IV DILAUDID Q3HR/PRN \: 3E MED SURG UNIT DCP: HOME WHEN STABLE; INSURANCE VERIFICATION IN PROCESS PLAN: SAFE DISCHARGE PLACE ESTABLISH FULL SCOPE MEDICAL
[2020-01-14] MEDS: LORazepam 1mg tab ORAL PRN ×2 (17:01→22:02)
--- NOTE | 2020-01-14 19:27 | NUR ---
HAND-OFF: Report given to Rosemary VALENTE. Patient is stable.
--- NOTE | 2020-01-14 19:28 | NUR ---
NURSE NOTES: Received report from Rosie VALENTE. Rounding is done. Patient is asleep. Facial grimacing noted. No distress noted at this time. Bed is on alarm, locked, and lowest position. Call light within reach. All safety measures provided. Will continue to monitor.
[2020-01-14 20:00] VITALS: BP 123/81
--- NOTE | 2020-01-14 22:40 | NUR ---
NURSE NOTES: Patient pulled out IV by him self and inserted new IV on Rt FA 20 nasreen.
[2020-01-15] VITALS: BP 120/80
[2020-01-15 04:00] VITALS: BP 112/73
[2020-01-15] MEDS: Morphine Sulfate 4mg/ml Inj (IV USE ONLY) IVP PRN ×2 (04:27→12:09)
--- NOTE | 2020-01-15 06:55 | Hematology/Onc Progress Note ---
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 Lloyd, likely won't need neurosurgery MAC transfer --> BACK on hospice recommendation --> recommend hospice # Anemia due to chronic disease --> no bleeding reported --> smear is noted --> no hemolysis # Encephalopathy --> likely related to brain mets --> lytes and ammonia # Poor prognosis -- hospice recommended # Dvt ppx scds DW Rn and appreciate consultation Subjective Constitutional: Denies: no symptoms, chills, fever, malaise, weakness, other HEENT: Denies: no symptoms, eye pain, blurred vision, tearing, double vision, ear pain, ear discharge, nose pain, nose congestion, throat pain, throat swelling, mouth pain, mouth swelling, other Genitourinary: Denies: no symptoms, burning, discharge, frequency, flank pain, hematuria, incontinence, pain, urgency, other Neurologic/Psychiatric: Denies: no symptoms, anxiety, depressed, emotional problems, headache, numbness, paresthesia, pre-existing deficit, seizure, tingling, tremors, weakness, other Allergies: Coded Allergies: UNABLE TO ASSESS (Unverified , 01/12/20) Subjective 01/13 patient remains confused, no bleeding, meds noted, no night sweats, dnr, hospice care 01/14 still confused, is pulling out his iv line, no bleeding, meds reviewed Objective Objective Current Medications Medications (Trade) Dose Ordered Sig/Aletha Route PRN Reason Start Time Stop Time Status Last Admin Dose Admin Gadobutrol (Gadavist) 7.5 mmol NOW PRN IV Radiology Procedure 01/12/20 20:00 01/16/20 20:00 Hydromorphone HCl (Dilaudid) 1 mg Q3H PRN IVP Severe Breakthru Pain (>7) 01/14/20 08:45 01/21/20 08:44 01/14/20 23:38 Lorazepam (Ativan) 1 mg Q4H PRN ORAL For Anxiety 4/28/20 20:00 01/19/20 19:59 01/14/20 22:02 Morphine Sulfate (Morphine Sulfate) 4 mg Q4H PRN IVP For Pain 01/13/20 09:30 01/20/20 09:29 01/15/20 04:27 Rivaroxaban (Xarelto) 20 mg DAILY ORAL 01/13/20 09:00 04/12/20 08:59 Sodium Chloride 1,000 ml @ 100 mls/hr Q10H IV 01/14/20 08:45 02/13/20 08:44 01/15/20 04:27 Last 24 Hour Vital Signs Date Time Temp Pulse Resp B/P (MAP) Pulse Ox O2 Delivery O2 Flow Rate FiO2 01/15/20 04:00 97.8 80 19 112/73 (86) 96 01/15/20 00:00 97.4 83 19 120/80 (93) 95 01/14/20 21:00 Room Air 01/14/20 20:00 97.6 96 19 123/81 (95) 96 01/14/20 16:00 98.0 74 18 127/83 (98) 98 01/14/20 12:00 98.0 81 18 149/95 (113) 98 01/14/20 09:00 Room Air 01/14/20 08:00 98.1 79 18 149/100 (116) 98 01/14/20 04:00 97.3 79 18 151/94 (113) 99 01/14/20 00:00 97.1 80 18 155/75 (101) 99 01/13/20 22:07 97.8 01/13/20 21:00 Room Air 01/13/20 20:00 96.3 81 18 145/99 (114) 96 01/13/20 16:00 97.8 92 18 165/98 (120) 97 01/13/20 12:00 97.3 75 18 143/82 (102) 98 01/13/20 09:00 Room Air 01/13/20 08:00 97.6 78 18 131/90 (104) 98 Intake and Output 01/14/20 01/15/20 19:00 07:00 Intake Total 900 ml Output Total 300 ml 800 ml Balance -300 ml 100 ml Intake IV Total 900 ml Output Urine Total 300 ml 800 ml Labs Test 01/12/20 12:35 01/13/20 05:05 01/14/20 04:45 01/15/20 05:05 White Blood Count 7.6 K/UL (4.8-10.8) 6.5 K/UL (4.8-10.8) 7.0 K/UL (4.8-10.8) Red Blood Count 4.59 M/UL (4.70-6.10) 3.85 M/UL (4.70-6.10) 4.06 M/UL (4.70-6.10) Hemoglobin 13.9 G/DL (14.2-18.0) 11.9 G/DL (14.2-18.0) 12.3 G/DL (14.2-18.0) Hematocrit 42.6 % (42.0-52.0) 35.2 % (42.0-52.0) 37.2 % (42.0-52.0) Mean Corpuscular Volume 93 FL (80-99) 91 FL (80-99) 92 FL (80-99) Mean Corpuscular Hemoglobin 30.3 PG (27.0-31.0) 30.8 PG (27.0-31.0) 30.3 PG (27.0-31.0) Mean Corpuscular Hemoglobin Concent 32.7 G/DL (32.0-36.0) 33.7 G/DL (32.0-36.0) 33.1 G/DL (32.0-36.0) Red Cell Distribution Width 14.5 % (11.6-14.8) 14.3 % (11.6-14.8) 14.6 % (11.6-14.8) Platelet Count 246 K/UL (150-450) 216 K/UL (150-450) 236 K/UL (150-450) Mean Platelet Volume 5.0 FL (6.5-10.1) 4.9 FL (6.5-10.1) 5.4 FL (6.5-10.1) Neutrophils (%) (Auto) 79.7 % (45.0-75.0) 71.1 % (45.0-75.0) 72.1 % (45.0-75.0) Lymphocytes (%) (Auto) 15.2 % (20.0-45.0) 21.6 % (20.0-45.0) 22.3 % (20.0-45.0) Monocytes (%) (Auto) 4.6 % (1.0-10.0) 6.8 % (1.0-10.0) 5.2 % (1.0-10.0) Eosinophils (%) (Auto) 0.1 % (0.0-3.0) 0.2 % (0.0-3.0) 0.2 % (0.0-3.0) Basophils (%) (Auto) 0.4 % (0.0-2.0) 0.3 % (0.0-2.0) 0.2 % (0.0-2.0) Prothrombin Time 10.7 SEC (9.30-11.50) Prothromb Time International Ratio 1.0 (0.9-1.1) Activated Partial Thromboplast Time 22 SEC (23-33) Sodium Level 141 MMOL/L (136-145) 147 MMOL/L (136-145) 149 MMOL/L (136-145) Potassium Level 4.5 MMOL/L (3.5-5.1) 3.9 MMOL/L (3.5-5.1) 3.6 MMOL/L (3.5-5.1) Chloride Level 102 MMOL/L (98-107) 111 MMOL/L (98-107) 114 MMOL/L (98-107) Carbon Dioxide Level 21 MMOL/L (21-32) 24 MMOL/L (21-32) 24 MMOL/L (21-32) Anion Gap 18 mmol/L (5-15) 12 mmol/L (5-15) 11 mmol/L (5-15) Blood Urea Nitrogen 36 mg/dL (7-18) 26 mg/dL (7-18) 18 mg/dL (7-18) Creatinine 1.8 MG/DL (0.55-1.30) 1.1 MG/DL (0.55-1.30) 0.8 MG/DL (0.55-1.30) Estimat Glomerular Filtration Rate 38.7 mL/min (>60) > 60 mL/min (>60) > 60 mL/min (>60) Glucose Level 179 MG/DL (74-106) 93 MG/DL (74-106) 80 MG/DL (74-106) Calcium Level 10.0 MG/DL (8.5-10.1) 8.0 MG/DL (8.5-10.1) 7.8 MG/DL (8.5-10.1) Total Bilirubin 0.9 MG/DL (0.2-1.0) 0.7 MG/DL (0.2-1.0) Aspartate Amino Transf (AST/SGOT) 37 U/L (15-37) 32 U/L (15-37) Alanine Aminotransferase (ALT/SGPT) 22 U/L (12-78) 27 U/L (12-78) Alkaline Phosphatase 59 U/L (46-116) 50 U/L (46-116) Troponin I 0.000 ng/mL (0.000-0.056) Total Protein 7.9 G/DL (6.4-8.2) 6.4 G/DL (6.4-8.2) Albumin 3.9 G/DL (3.4-5.0) 3.1 G/DL (3.4-5.0) Globulin 4.0 g/dL 3.3 g/dL Albumin/Globulin Ratio 1.0 (1.0-2.7) 0.9 (1.0-2.7) Salicylates Level 5.9 ug/mL (2.8-20) Acetaminophen Level < 2 MCG/ML (10-30) Serum Alcohol < 3 mg/dL Reticulocyte Count 0.7 % (0.5-2.0) Carcinoembryonic Antigen 201.0 ng/mL (0.0-4.7) CA 15-3 Antigen 13.2 U/mL (0.0-25.0) Prostate Specific Antigen 1.17 ng/mL (0.13-4.0) Height (Feet): 5 Height (Inches): 7.00 Weight (Pounds): 92 Objective Vital Signs Vitals: noted General no apparent distress, GCS 15, nonverbal Heent: nc, at Resp: chest non-tender, lungs clear Cardiovascular: rrr, no mgr Gastrointestinal: normal bowel sounds, non tender Rectal: deferred Genitourinary: normal inspection, no CVA tenderness Musc: back normal, normal range of motion Neurologic: alert, other - nonverbal Psychiatric: other - nonverbal Kirby Mojica MD January 15, 2020 06:55
[2020-01-15 07:06] LABS: BASOPHILS % (AUTO) 0.3 % (0.0-2.0); EOSINOPHILS % (AUTO) 0.5 % (0.0-3.0); HEMATOCRIT 36.5 % (42.0-52.0); HEMOGLOBIN 12.2 G/DL (14.2-18.0); LYMPHOCYTES % (AUTO) 15.7 % (20.0-45.0); MEAN CORPUSCULAR VOLUME 91 FL (80-99); MONOCYTES % (AUTO) 5.3 % (1.0-10.0); NEUTROPHILS % (AUTO) 78.2 % (45.0-75.0); PLATELET COUNT 222 K/UL (150-450); RED BLOOD COUNT 3.99 M/UL (4.70-6.10); RED CELL DISTRIBUTION WIDTH 14.3 % (11.6-14.8); WHITE BLOOD COUNT 7.7 K/UL (4.8-10.8)
[2020-01-15 07:34] LABS: ANION GAP 12 mmol/L (5-15); BLOOD UREA NITROGEN 16 mg/dL (7-18); CALCIUM 7.9 MG/DL (8.5-10.1); CARBON DIOXIDE 24 MMOL/L (21-32); CHLORIDE 110 MMOL/L (98-107); CREATININE 0.8 MG/DL (0.55-1.30); POTASSIUM 3.7 MMOL/L (3.5-5.1); SODIUM 146 MMOL/L (136-145)
--- NOTE | 2020-01-15 07:35 | NUR ---
HAND-OFF: Report given to Jayshree VALENTE. Patient in stable condition.
[2020-01-15 08:00] VITALS: BP 138/87
--- NOTE | 2020-01-15 08:00 | NUR ---
NURSE NOTES: Received report from Su VALENTE, pt a/a/o x1 laying in bed with no signs of distress or other issues at this time. no skin issues noted. IV on the right FA gauge#20 running 1/2 NS @100ml/hr. condom cath in place. call light within reach, bed in lowest position, side rales up x2. I will f/u as needed. I will f/u as needed.
--- NOTE | 2020-01-15 08:10 | General Progress Note ---
Assessment/Plan Assessment/Plan: IMPRESSION Small cell Ca widely metastatic chronic encephalopathy anxiety severe pain cachexia PLAN oncology noted confirms that patient should be sent home with hospice son would like to continue and confirms DNR await case management to assist impression, plan, and exam edited and reviewed in detail care discussed with RN Subjective Allergies: Coded Allergies: UNABLE TO ASSESS (Unverified , 01/12/20) Subjective awaiting dc Objective Last 24 Hour Vital Signs Date Time Temp Pulse Resp B/P (MAP) Pulse Ox O2 Delivery O2 Flow Rate FiO2 01/15/20 04:00 97.8 80 19 112/73 (86) 96 01/15/20 00:00 97.4 83 19 120/80 (93) 95 01/14/20 21:00 Room Air 01/14/20 20:00 97.6 96 19 123/81 (95) 96 01/14/20 16:00 98.0 74 18 127/83 (98) 98 01/14/20 12:00 98.0 81 18 149/95 (113) 98 01/14/20 09:00 Room Air Intake and Output 01/14/20 01/15/20 19:00 07:00 Intake Total 900 ml Output Total 300 ml 800 ml Balance -300 ml 100 ml Intake IV Total 900 ml Output Urine Total 300 ml 800 ml Laboratory Tests 01/15/20 05:05: White Blood Count 7.7, Red Blood Count 3.99L, Hemoglobin 12.2L, Hematocrit 36.5L , Mean Corpuscular Volume 91, Mean Corpuscular Hemoglobin 30.5, Mean Corpuscular Hemoglobin Concent 33.3, Red Cell Distribution Width 14.3, Platelet Count 222, Mean Platelet Volume 4.8L, Neutrophils (%) (Auto) 78.2H, Lymphocytes (%) (Auto) 15.7L, Monocytes (%) (Auto) 5.3, Eosinophils (%) (Auto) 0.5, Basophils (%) (Auto) 0.3, Sodium Level 146H, Potassium Level 3.7, Chloride Level 110H, Carbon Dioxide Level 24, Anion Gap 12, Blood Urea Nitrogen 16, Creatinine 0.8, Estimat Glomerular Filtration Rate > 60, Glucose Level 96, Calcium Level 7.9L Height (Feet): 5 Height (Inches): 7.00 Weight (Pounds): 92 Objective WDWN NAD clear breath sounds bilaterally without rhonchi or wheeze [id number] without MRG NABS nontender no HSM no CCE nonfocal cachectic Cristhian Dugan MD January 15, 2020 08:10
[2020-01-15] MEDS: Xarelto 10mg tab ORAL SCH (09:43)
--- NOTE | 2020-01-15 11:58 | CDS Physician Query ---
Clarification is required for compliance, coding accuracy, and to reflect severity of illness for this patient Dear Dr. Cristhian Dugan Date: 01/15/2020 Face Hardener/CDS Name: Maria Alejandra Knowles Clinical Documentation: HNP: 64y old male, elderly unidentified male presents for altered mental status...Small cell Ca widely metastatic, chronic encephalopathy...cachexia RD note: Increase Kcal needs r/t underweight status as evidenced by pt w/mets brain dz, BMI underweight per guidelines, pt is 63% of ideal body weight w/ severe generalized wasting. BMI 14.5, Albumin 3.1 Please select the most appropriate option: [] Protein/Calorie Malnutrition [] Mild [] Moderate [] Severe [] Hypoalbuminemia [] Underweight [] Intestinal malabsorption [] Other [] Unable to determine [] Not Applicable Present on Admission: [] Yes [] No [] Clinically Undetermined Physician signature Date Please also document in your Progress Notes and/or Discharge Summary and indicate if the condition was present on admission. MTDD
[2020-01-15 12:00] VITALS: BP 140/92
--- NOTE | 2020-01-15 13:33 | NUR ---
*-* DISCHARGE PLANNING *-* PATIENT HAS BEEN REFERRED TO: [facility] P: [phone] F: [phone]
--- NOTE | 2020-01-15 14:02 | NUR ---
P.T Note: Attempted to see pt for P.T evaluation however pt in severe pain and unable to tolerate P.T evaluation. RN notified/aware.
[2020-01-15] MEDS: HYDROmorphone 1mg/ml Carpuject IVP PRN (15:26)
[2020-01-15 16:00] VITALS: BP 123/81
--- NOTE | 2020-01-15 17:27 | NUR ---
*-*DISCHARGE PLANNING*-* PATIENT IS BEING DISCHARGED HOME WITH HOME HOSPICE TRANSPORTATION SET ARRANGED WITH [facility] [id number] S/W NARCISA ACCOUNTANT CONTROLLER TIME SET FOR 6:30PM S/W SERAFIN CABRERA, WHO IS IN AGREEMENT WITH DISCHARGE.
--- NOTE | 2020-01-15 19:21 | NUR ---
HAND-OFF: Report given to Jono RN, pt in stable condition. - discharge instruction done, incoming nurse is aware. - per amusement centre managerproject manager process development arranged with [facility] to brass pickler at 18:30 - per geriatric case manager [facility] will start care tonight at home at 19:00 [facility] hospice: [phone]
--- NOTE | 2020-01-16 11:04 | Discharge Summary ---
Discharge Summary Discharge Summary _ DATE OF ADMISSION: 01/12/2020 DATE OF DISCHARGE: 01/15/2020 DISCHARGED BY: Dr. Dugan REASON FOR ADMISSION: 64 years old male with unknown past medical history , presented with altered mental status. Patient was not wearing clothes and was wandering outside. Bystanders called paramedics. Patient was unable to answer any question in regards to his name or address. No signs of distress upon arrival. Vital signs were stable. Laboratory work-up revealed no leukocytosis ,stable hemoglobin ,hematocrit and platelet count. Stable electrolytes. BUN 36, creatinine 1.8. Stable LFT. EKG revealed no acute ischemic changes , troponin negative . Serum salicylate, Tylenol and alcohol were all negative. CT of the head revealed findings consistent with brain metastasis. Chest x-ray revealed right midlung 2.3 cm nodule. Sclerotic left third rib versus superimposed nodule. Hyperexpansion, likely COPD. Patient subsequently admitted for further management. CONSULTANTS: funeral greeter/oncologist Dr. Mojica [facility] COURSE: Patient admitted to medical surgical floor and received 1 L of fluid. Pain management was addressed. Reviewing brain imaging was showing brain metastasis, which was confirmed by the patient's son. Patient apparently had small cell lung cancer with metastasis and was on hospice services prior. Son confirmed DNR/DNI status. Oncologist seen and evaluated patient. Per oncologist, patient had stage IV metastatic lung cancer as noted on imaging and very poor prognosis. Further goals of care were discussed with patient's son, who wants his father to go back home with hospice services. i Tumor markers were significantly elevated CA-19-9 - 2146. CEA -201. Protein supplements provided as per m48/m60 tank driver recommendation. Patient subsequently was discharged home with hospice services. 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 DISCHARGE INSTRUCTIONS: Patient was discharged home with hospice services. I have been assigned to dictate discharge summary for this account. I was not involved in the patient's management. Ina Fine CELL TESTER January 16, 2020 11:04
== END 2020-01-15 20:16 | disposition home or self-care (01) | DRG 41 ==
LOC: EDBD 12:12 → EMR 12:22 → 3E 16:23 → EDBD 16:23 → EDBEDREQ 17:58 → 3E 01-14 18:22
DX: C79.31 Secondary malignant neoplasm of brain (principal); E43 Unspecified severe protein-calorie malnutrition; G93.49 Other encephalopathy; C34.90 Malignant neoplasm of unspecified part of unspecified bronchus or lung; Z68.1 Body mass index [BMI] 19.9 or less, adult; Z66 Do not resuscitate; J44.9 Chronic obstructive pulmonary disease, unspecified; D63.8 Anemia in other chronic diseases classified elsewhere
CPT/HCPCS: 36415; 70450; 71045; 80048; 80053; 82378; 84153; 84484; 85025; 85044; 85610; 85730; 86300; 86850; 86900; 86901; 87081; 92610; 93005; 96361; 96374; 99291; G0480; J7030